=== PATIENT | male | born 1965 | race Caucasian/White ===

== ENCOUNTER → 2021-03-09 | Outpatient (CLI) | payer BC, OTHER ==
--- NOTE | 2021-03-09 12:08 | Diagnostic Imaging Report ---
EXAMINATION: Chest 2 view HISTORY: Shortness of breath, prior Covid 19. COMPARISON: None available. FINDINGS: The lungs are clear without edema or pneumonia. No pleural effusion or pneumothorax. Heart size is normal. IMPRESSION: 1. Clear lungs. Dictated by: Dictated on workstation # [id number]
== END ==
LOC: RAD FS 11:46
PROVIDERS: ATTEND Nurse Practitioner Family
DX: R06.02 Shortness of breath (principal); Z86.16 Personal history of COVID-19
CPT/HCPCS: 71046

== ENCOUNTER → 2022-02-09 | Outpatient (CLI) | payer BC ==
[~2022-02-09] MED LIST: BARIUM for suspension 98% w/w (Vanilla Silq High Density) PO ONE
--- NOTE | 2022-02-10 21:32 | Diagnostic Imaging Report ---
INDICATION: Dysphagia. EXAMINATION: Swallowing function study. COMPARISON: There are no prior studies available for comparison. FINDINGS: This exam was performed in the presence of the Speech Pathologist. The patient was given barium in different substances to swallow including pudding, nectar and thin barium. He experienced one transient episode of penetration with the thin barium but otherwise was able swallow the materials without difficulty. IMPRESSION: Aside from transient penetration with the thin barium, the swallowing mechanism is unremarkable. Dictated by: Dictated on workstation # [id number]
== END ==
LOC: RAD 09:55
PROVIDERS: ATTEND Nurse Practitioner Family
DX: R13.19 Other dysphagia (principal)
CPT/HCPCS: 74230